=== PATIENT | male | born 1985 | race Two or more races ===

== ENCOUNTER 2016-07-31 02:28 | Emergency (ER) | payer MEDICAID ==
[~2016-07-31] VITALS: Ht 167.6 cm; Wt 68.0 kg
[2016-07-31] MEDS ORDERED: KETOROLAC TROMETHAMINE INJ 30 MG/ML VIAL ONE (03:23)
--- NOTE | 2016-07-31 03:29 | NUR ---
BIB SELF, CC: LEFT HIP PAIN SINCE 1699, PATIENT IS VERBALLY RESPONSIVE, DENIES ANY TRAUMA, PATIENT STATES THAT THE PAIN HAS BEEN GETTING WORSE SINCE THE TIME IT BEGAN
[2016-07-31] MEDS ORDERED: KETOROLAC TROMETHAMINE INJ 60 MG/2 ML VIAL IM ONE (03:30)
[2016-07-31] MEDS ORDERED: HYDROCODONE/APAP 5/325MG 1 EACH TABLET ONE (03:48)
--- NOTE | 2016-07-31 03:58 | NUR ---
grades 1 thru 6 visiting teacher at bedside.
[2016-07-31] MEDS ORDERED: HYDROCODONE/APAP 5/325MG 1 EACH TABLET PO ONE (04:00)
[2016-07-31] MEDS ORDERED: ACETAMINOPHEN 325 MG TABLET ONE (05:31)
--- NOTE | 2016-07-31 05:38 | NUR ---
Patient discharged to home in stable condition. Written and verbal after care instructions given. Patient verbalizes understanding of instruction.
[2016-07-31 05:39] VITALS: BP 113/75
== END 2016-07-31 05:40 | disposition home or self-care (01) ==
LOC: ER 02:28
DX: M25.552 Pain in left hip (principal)
CPT/HCPCS: 73503; 96372; 99284; A4606; J1885; Z7610; 73502

== ENCOUNTER 2018-05-23 19:58 | Emergency (ER) | payer OTHER ==
[~2018-05-23] VITALS: Ht 172.7 cm; Wt 72.6 kg
--- NOTE | 2018-05-23 20:49 | NUR ---
PT CAME IN FOR LT EYE PAIN, FEELS THAT THERE IS A FOREIGN BODY, VS STABLE PLACED ON ER BED 13, AWAITING TO BE EVAL BY ER MD.
[2018-05-23] MEDS ORDERED: FLUORESCEIN SODIUM OPHTH 1 EA STRIP ONE (23:26)
[2018-05-23] MEDS ORDERED: TETRACAINE HCL/PF 0.5% UD 2 ML BOTTLE ONE (23:26)
[2018-05-23] MEDS ORDERED: TETRACAINE HCL/PF 0.5% UD 2 ML BOTTLE LEFTEYE ONE (23:30)
[2018-05-23] MEDS ORDERED: FLUORESCEIN SODIUM OPHTH 1 EA STRIP OP ONE (23:30)
--- NOTE | 2018-05-24 00:10 | NUR ---
LT EYE IRRIGATION DONE AT BEDSIDE, WITH SLIGHT RELEIF OF DISCOMFORT.
[2018-05-24] MEDS ORDERED: IBUPROFEN 600 MG TABLET PO ONE ×2 (00:46→01:00)
--- NOTE | 2018-05-24 01:22 | NUR ---
Patient discharged to home in stable condition, re-eval done by dr Ayala, no object identified, pt cleared to f/u with optomologists. Written and verbal after care instructions given. Patient verbalizes understanding of instruction.
[2018-05-24 01:28] VITALS: BP 132/82
== END 2018-05-24 01:29 | disposition home or self-care (01) ==
LOC: ER 20:08
DX: T15.02XA Foreign body in cornea, left eye, initial encounter (principal); F17.200 Nicotine dependence, unspecified, uncomplicated; W45.8XXA Other foreign body or object entering through skin, initial encounter; Y93.89 Activity, other specified; Y92.89 Other specified places as the place of occurrence of the external cause; Y99.8 Other external cause status

== ENCOUNTER 2021-07-20 16:47 | Emergency (ER) | payer MEDICAID ==
[~2021-07-20] VITALS: Ht 165.1 cm; Wt 77.1 kg
--- NOTE | 2021-07-20 17:31 | NUR ---
PT SEEN AND EXAMINED BY .
[2021-07-20 20:40] VITALS: BP 138/70
--- NOTE | 2021-07-20 20:40 | NUR ---
Patient discharged to home in stable condition. Written and verbal after care instructions given. Patient verbalizes understanding of instruction.
== END 2021-07-20 20:54 | disposition home or self-care (01) ==
LOC: ER 17:01
DX: M25.562 Pain in left knee (principal)
CPT/HCPCS: 73564-TC